=== PATIENT | female | born 1980 | race Two or more races ===

== ENCOUNTER 2020-08-07 14:56 | Outpatient (AMBR) | payer OTHER, MEDICAID, SELFPAY ==
--- NOTE | 2020-08-07 15:13 | PTNOTE_ITS ---
PT OP Initial Eval Patient Information Visit Reasons: low back pain Medical Diagnosis: M54.52 Start of Care: 08/07/20 Date of Onset: 4 months ago Initial Assessment Subjective Pt is 40 yr old female who reports LBP that radiates down the back of the L LE. Increased pain with prolonged walking, standing up straight and the LE's go numb/painful. 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 PMH: HTN Imaging: with provider, Xray report in chart Pt goal: less LBP Objective Trunk ArOM: B SB 18 with pain L>R Extension: 30% with pain around L2-3 centrally Flexion: 4 from floor B rotation: 60% R SLR ROM: 42 deg. L SLR: 50 deg with posterior knee neural tension, LBP LE strength: B hamstrings: 4-/5 Quads 4-/5 Hip abd/add 4-/5 TTP: moderate L paraspinals L2-3 and diffusely L3-S1 L SLR: positive Assessment Pt presents with trunk extension sensitivity and overlying myofascial pain around L2-5. She has lumbar extensor atrophy and pain with prolonged standing. Pt has good pelvic kinematics and is able to control pelvic tilt. These findings are consistent with mechanical lumbar facet pain and possible disk pain with L LE radiation. Pt requires skilled therapy in order to decrease pain and improve standing tolerance and has fair/good rehab potential. Short Term and Residential Goals 1. Ind with HEP 2. Improved standing tolerance to 30 minutes with <=4/10 LBP 3. Pt will improve ambulatory distance to not limited by pain 4. Pt will demonstrate posterior pelvic tilting in standing Treatment Plan 1. Manual therapy 2. Therex 3. Modalities as indicated, moist heat, ice, estim Frequency and Duration 2x a week for 6 weeks Certification Dates: 08/07/20 to 11/06/20 Office Procedures PT Procedures PT Date of Service: 08/07/20 OP PT Eval Mod Complex 30 minutes: Yes
== END 2020-08-10 23:59 | disposition home or self-care (01) ==
PROVIDERS: PCP Physician Assistant Medical; Referring Provider Physician Assistant Medical; Visit Provider Physician Assistant Medical
DX: M54.42 Lumbago with sciatica, left side (principal); I10 Essential (primary) hypertension
CPT/HCPCS: 97162

== ENCOUNTER 2020-09-06 14:29 | Outpatient (AMBR) | payer OTHER, MEDICAID, SELFPAY ==
--- NOTE | 2020-08-13 19:17 | PT.ODAYNRPT ---
PT Outpatient Daily Note Date of Service: 08/13/20 OP Daily Note Visit Reasons: low back pain Outpatient Physical Therapy Treatment Date: 08/13/20 Subjective: Less LBP with posterior pelvic tilting Objective: SEe F/S for therex Mech traction L/S x10' at 40 lbs Assessment: Good response to pelvic tilting in supine and standing to relieve LBP consistent with facet pain. Plan: Continue per POC Length of Time (minutes) of Treatment: 30 Minutes Office Procedures PT Procedures PT Date of Service: 08/13/20 Therapeutic Exercise 15 minutes: Yes Manual Clinical Data Manager 15 minutes: Yes
--- NOTE | 2020-08-15 16:09 | PTNOTE_ITS ---
PT Outpatient Daily Note Date of Service: 08/15/20 OP Daily Note Visit Reasons: low back pain Outpatient Physical Therapy Treatment Date: 08/15/20 Subjective: Less LBP with posterior pelvic tilting in standing but it hurts when she sits. She stands for prolonged periods at work and it hurts after sitting down. Objective: SEe F/S for therex MT: STM L/S x10' with Graston Assessment: Good response to pelvic tilting in supine and standing to relieve LBP consistent with facet pain and X-ray results of anterolisthesis L4 on L5. Plan: Continue per POC Length of Time (minutes) of Treatment: 30 Minutes Office Procedures PT Procedures PT Date of Service: 08/13/20 Therapeutic Exercise 15 minutes: Yes Manual Nurse Substance Abuse 15 minutes: Yes PT Procedures PT Date of Service: 08/15/20 Therapeutic Exercise 15 minutes: Yes Manual Nurse Substance Abuse 15 minutes: Yes
--- NOTE | 2020-08-21 18:24 | PTNOTE_ITS ---
PT Outpatient Daily Note Date of Service: 08/21/20 OP Daily Note Visit Reasons: low back pain Outpatient Physical Therapy Treatment Date: 08/21/20 Subjective: Less LBP with posterior pelvic tilting in standing but it hurts when she sits. She stands for prolonged periods at work and it hurts after sitting down. Objective: SEe F/S for therex MT: STM L/S x10' with Graston Assessment: Good response to pelvic tilting in supine and standing to relieve LBP consistent with facet pain and X-ray results of anterolisthesis L4 on L5. Plan: Continue per POC Length of Time (minutes) of Treatment: 30 Minutes Office Procedures PT Procedures PT Date of Service: 08/13/20 Therapeutic Exercise 15 minutes: Yes Manual Improvement Rn 15 minutes: Yes PT Procedures PT Date of Service: 08/21/20 Therapeutic Exercise 15 minutes: Yes Manual Improvement Rn 15 minutes: Yes PT Procedures PT Date of Service: 08/15/20 Therapeutic Exercise 15 minutes: Yes Manual Improvement Rn 15 minutes: Yes
--- NOTE | 2020-08-23 18:33 | PT.ODAYNRPT ---
PT Outpatient Daily Note Date of Service: 08/23/20 OP Daily Note Visit Reasons: low back pain Outpatient Physical Therapy Treatment Date: 08/23/20 Subjective: Less LBP with posterior pelvic tilting in standing but it hurts when she sits. She stands for prolonged periods at work and it hurts after sitting down. Objective: SEe F/S for therex MT: STM L/S x10' with Graston Mechanical traction L/S x7' at 40 lbs Assessment: Good response to pelvic tilting in supine and standing to relieve LBP consistent with facet pain and X-ray results of anterolisthesis L4 on L5. Plan: Continue per POC Length of Time (minutes) of Treatment: 30 Minutes Office Procedures PT Procedures PT Date of Service: 08/13/20 Therapeutic Exercise 15 minutes: Yes Manual Digital Field Service Technician 15 minutes: Yes PT Procedures PT Date of Service: 08/21/20 Therapeutic Exercise 15 minutes: Yes Manual Digital Field Service Technician 15 minutes: Yes PT Procedures PT Date of Service: 08/15/20 Therapeutic Exercise 15 minutes: Yes Manual Digital Field Service Technician 15 minutes: Yes PT Procedures PT Date of Service: 08/23/20 Therapeutic Exercise 15 minutes: Yes Manual Digital Field Service Technician 15 minutes: Yes
--- NOTE | 2020-08-27 20:44 | PT.ODAYNRPT ---
PT Outpatient Daily Note Date of Service: 08/27/20 OP Daily Note Visit Reasons: low back pain Outpatient Physical Therapy Treatment Date: 08/27/20 Subjective: Less LBP with posterior pelvic tilting in standing but it hurts when she sits. She stands for prolonged periods at work and it hurts after sitting down. Objective: SEe F/S for therex Mechanical traction L/S x7' at 40 lbs Assessment: Good response to pelvic tilting in supine and standing to relieve LBP consistent with facet pain and X-ray results of anterolisthesis L4 on L5. Plan: Continue per POC Length of Time (minutes) of Treatment: 30 Minutes Office Procedures PT Procedures PT Date of Service: 08/13/20 Therapeutic Exercise 15 minutes: Yes Manual Sugar Cane Planter Machine Operator 15 minutes: Yes PT Procedures PT Date of Service: 08/21/20 Therapeutic Exercise 15 minutes: Yes Manual Sugar Cane Planter Machine Operator 15 minutes: Yes PT Procedures PT Date of Service: 08/27/20 Therapeutic Exercise 30 minutes: Yes PT Procedures PT Date of Service: 08/15/20 Therapeutic Exercise 15 minutes: Yes Manual Sugar Cane Planter Machine Operator 15 minutes: Yes PT Procedures PT Date of Service: 08/23/20 Therapeutic Exercise 15 minutes: Yes Manual Sugar Cane Planter Machine Operator 15 minutes: Yes
--- NOTE | 2020-08-29 19:04 | PT.ODAYNRPT ---
PT Outpatient Daily Note Date of Service: 08/29/20 OP Daily Note Visit Reasons: low back pain Outpatient Physical Therapy Treatment Date: 08/29/20 Subjective: Less LBP with posterior pelvic tilting in standing but it hurts when she sits. She stands for prolonged periods at work and it hurts after sitting down. Objective: SEe F/S for therex Mechanical traction L/S x7' at 40 lbs MT: STM L/S x10 with graston Assessment: Good response to pelvic tilting in supine and standing to relieve LBP consistent with facet pain and X-ray results of anterolisthesis L4 on L5. Plan: Continue per POC Length of Time (minutes) of Treatment: 30 Minutes Office Procedures PT Procedures PT Date of Service: 08/13/20 Therapeutic Exercise 15 minutes: Yes Manual Web Content Producer 15 minutes: Yes PT Procedures PT Date of Service: 08/21/20 Therapeutic Exercise 15 minutes: Yes Manual Web Content Producer 15 minutes: Yes PT Procedures PT Date of Service: 08/27/20 Therapeutic Exercise 30 minutes: Yes PT Procedures PT Date of Service: 08/15/20 Therapeutic Exercise 15 minutes: Yes Manual Web Content Producer 15 minutes: Yes PT Procedures PT Date of Service: 08/23/20 Therapeutic Exercise 15 minutes: Yes Manual Web Content Producer 15 minutes: Yes PT Procedures PT Date of Service: 08/29/20 Therapeutic Exercise 15 minutes: Yes Manual Web Content Producer 15 minutes: Yes
--- NOTE | 2020-09-04 18:33 | PTNOTE_ITS ---
PT Outpatient Daily Note Date of Service: 09/04/20 OP Daily Note Visit Reasons: low back pain Outpatient Physical Therapy Treatment Date: 09/04/20 Subjective: Less LBP because she is not lifting heavy at work this week Objective: SEe F/S for therex MT: CLINT L/S x10 with graston Assessment: Good response to pelvic tilting in supine and standing to relieve LBP consistent with facet pain and X-ray results of anterolisthesis L4 on L5. Plan: Continue per POC Length of Time (minutes) of Treatment: 30 Minutes Office Procedures PT Procedures PT Date of Service: 08/13/20 Therapeutic Exercise 15 minutes: Yes Manual Certified Pharmacist Assistant 15 minutes: Yes PT Procedures PT Date of Service: 08/21/20 Therapeutic Exercise 15 minutes: Yes Manual Certified Pharmacist Assistant 15 minutes: Yes PT Procedures PT Date of Service: 08/27/20 Therapeutic Exercise 30 minutes: Yes PT Procedures PT Date of Service: 08/15/20 Therapeutic Exercise 15 minutes: Yes Manual Certified Pharmacist Assistant 15 minutes: Yes PT Procedures PT Date of Service: 08/23/20 Therapeutic Exercise 15 minutes: Yes Manual Certified Pharmacist Assistant 15 minutes: Yes PT Procedures PT Date of Service: 08/29/20 Therapeutic Exercise 15 minutes: Yes Manual Certified Pharmacist Assistant 15 minutes: Yes PT Procedures PT Date of Service: 09/04/20 Therapeutic Exercise 15 minutes: Yes Manual Certified Pharmacist Assistant 15 minutes: Yes
--- NOTE | 2020-09-06 18:50 | PTNOTE_ITS ---
PT OP Progress/Discharge Note Date of Service: 09/06/20 Progress Note/DC Note Progress Note/Discharge Note: DC Note Patient Information Visit Reasons: low back pain Service Continue Service or Discharge: Discharge Discharge Date: 09/06/20 Status Subjective: Not much change in LBP since starting therapy. It hurts most days starting around 11 a.m. for the rest of the day and the radiating pain down the LE's has increased lately. Objective: Trunk AROM: Extension: 30% with LBP Flexion: 4 from floor LE strength: Quads: 4-/5 HS: 4-/5 Assessment: Pt has attended 8 Rx visits and made slow progress with goals. She can sometimes stand for 30 minutes without LBP but depends on the day. At first she had good response to pelvic tilting in supine and standing to relieve LBP consistent with facet pain and X-ray results of anterolisthesis L4 on L5. Then recently she seems to have had more LBP. PT recommends further diagnostic imaging since the LE radicular ssx are increasing. Plan: Pt is discharged to provider for further workup. Office Procedures PT Procedures PT Date of Service: 08/13/20 Therapeutic Exercise 15 minutes: Yes Manual Senior Communications Specialist 15 minutes: Yes PT Procedures PT Date of Service: 08/21/20 Therapeutic Exercise 15 minutes: Yes Manual Senior Communications Specialist 15 minutes: Yes PT Procedures PT Date of Service: 08/27/20 Therapeutic Exercise 30 minutes: Yes PT Procedures PT Date of Service: 08/15/20 Therapeutic Exercise 15 minutes: Yes Manual Senior Communications Specialist 15 minutes: Yes PT Procedures PT Date of Service: 08/23/20 Therapeutic Exercise 15 minutes: Yes Manual Senior Communications Specialist 15 minutes: Yes PT Procedures PT Date of Service: 08/29/20 Therapeutic Exercise 15 minutes: Yes Manual Senior Communications Specialist 15 minutes: Yes PT Procedures PT Date of Service: 09/04/20 Therapeutic Exercise 15 minutes: Yes Manual Senior Communications Specialist 15 minutes: Yes PT Procedures PT Date of Service: 09/06/20 Therapeutic Exercise 30 minutes: Yes
== END 2020-09-10 23:59 | disposition home or self-care (01) ==
PROVIDERS: PCP Physician Assistant Medical; Referring Provider Physician Assistant Medical; Visit Provider Physician Assistant Medical
DX: M54.42 Lumbago with sciatica, left side (principal); I10 Essential (primary) hypertension
CPT/HCPCS: 97110; 97140

== ENCOUNTER → 2024-05-19 | Outpatient (CLI) | payer OTHER, SELFPAY ==
--- NOTE | 2024-05-19 09:30 | XR_ITS ---
Examination: Scoliosis survey 2, views. Technique: AP standing thoracic, AP standing lumbar spine, two views. Exam date and time: May 19, 2024 1317 hours INDICATIONS: Lower lumbar pain 7 months. FINDINGS: Midthoracic dextroscoliosis 4 degrees Thoracolumbar levoscoliosis 4 degrees Transpedicular lumbar fusion L4-S1 IMPRESSION: Minimal scoliosis
--- NOTE | 2024-05-19 13:20 | XR_ITS ---
Examination: Lumbar spine, 5 views Technique: Lumbar spine AP, lateral, coned lateral lower lumbar spine, bilateral obliques 5 views Exam date and time: May 19, 2024 at 1317 hours INDICATIONS: Lumbar fusion 7 months ago. FINDINGS: Transpedicular lumbar fusion L4-S1 with anatomic alignment No significant arthritic change Intact pedicles No cortical bone destruction IMPRESSION: Transpedicular lumbar fusion L4-S1 with anatomic alignment
== END | disposition home or self-care (01) ==
LOC: SDIM 09:04
PROVIDERS: PCP Family Medicine; Referring Provider Orthopaedic Surgery Orthopaedic Surgery of the Spine; Visit Provider Orthopaedic Surgery Orthopaedic Surgery of the Spine
DX: M41.85 Other forms of scoliosis, thoracolumbar region (principal); M43.27 Fusion of spine, lumbosacral region
CPT/HCPCS: 72082; 72110

== ENCOUNTER → 2024-06-21 | Outpatient (CLI) | payer OTHER, SELFPAY ==
[2024-06-21 12:24] LABS: Collection Type, Urine Clean Catch
[2024-06-21 13:27] LABS: Basophils # (Auto) 0.1 Thou/mm3 (0.0-0.2); Basophils % (Auto) 1 % (0-2.5); Eosinophils # (Auto) 0.3 Thou/mm3 (0.0-0.5); Eosinophils % (Auto) 3 % (0-10); Hematocrit 34.7 % (36.0-46.0); Hemoglobin 10.8 g/dL (12.0-16.0); Immature Granulocytes % (Auto) 0 % (0-0); Immature Granulocytes Auto 0.03 Thou/mm3 (0.00-0.00); Lymphocytes # (Auto) 2.1 Thou/mm3 (1.0-4.8); Lymphocytes % (Auto) 25 % (10-50); Mean Corpuscular HGB Conc 31.1 g/dl (31.0-37.0); Mean Corpuscular Volume 83 fL (80-100); Monocytes # (Auto) 0.6 Thou/mm3 (0.0-0.8); Monocytes % (Auto) 8 % (0-12); Neutrophils # (Auto) 5.1 Thou/mm3 (1.8-7.7); Neutrophils % (Auto) 62 % (37-80); Nucleated Red Blood Cell % 0 /100 WBC (0); Platelet Count 451 Thou/mm3 (140-440); RDW Standard Deviation 42.2 fL (36.4-46.3); Red Blood Count 4.16 Miln/mm3 (4.00-5.20); White Blood Count 8.2 Thou/mm3 (3.6-11.0)
[2024-06-21 13:29] LABS: Bilirubin,Urine Negative (Negative); Blood,Urine Negative (Negative); Clarity,Urine Clear (Clear/Hazy); Color,Urine Lt-Yellow (Lt Yel-Yel); Culture Indicated,Urine Not Indicated; Glucose, Urine Negative (Negative); Ketones,Urine Negative (Negative); Leukocyte Esterase,Urine Negative (Negative); Nitrite,Urine Negative (Negative); Protein,Urine Negative (Neg - Trace); RBC,Urine 4 /hpf (0-3); Specific Gravity,Urine 1.008 (1.001-1.035); Squamous Epithelial Cell,Urine 3 /hpf (0-5); Urobilinogen,Urine Negative mg/dL (0.0-1.0); WBC,Urine 2 /hpf (0-5)
[2024-06-21 13:37] LABS: Glucose Estimated Average 117 mg/dL (80-131); Hemoglobin A1C 5.7 % Hgb (4.8-6.0)
[2024-06-21 13:53] LABS: Follicle Stimulating Hormone 7.52 mIU/mL (See Note)
== END | disposition home or self-care (01) ==
PROVIDERS: PCP Family Medicine; Referring Provider Family Medicine; Visit Provider Family Medicine
DX: M41.9 Scoliosis, unspecified (principal)
CPT/HCPCS: 36415; 81001; 83001; 83036; 85025

== ENCOUNTER 2024-08-08 08:55 | Outpatient (AMB) | payer OTHER, SELFPAY ==
[2024-08-08 09:11] VITALS: BP 133/83; PULSE 75; RESP 14; TEMP 35.4; O2SAT 98; BMI 38.1
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
== END 2024-08-08 09:54 | disposition home or self-care (01) ==
LOC: HODSOBC 08:55
PROVIDERS: PCP Family Medicine; Referring Provider Family Medicine; Supervising Provider Obstetrics & Gynecology; Visit Provider Obstetrics & Gynecology
DX: N39.46 Mixed incontinence (principal); N76.0 Acute vaginitis; N92.6 Irregular menstruation, unspecified; I10 Essential (primary) hypertension; Z79.899 Other long term (current) drug therapy
CPT/HCPCS: 99213; 99214; Q0091; G0463

== ENCOUNTER 2024-08-10 08:00 | Outpatient (RCR) | payer OTHER, SELFPAY ==
--- NOTE | 2024-07-26 16:00 | PT.OIERPT ---
PT OP Initial Eval Patient Information Visit Reasons: Back pain Medical Diagnosis: [id number]; M54.15 Treatment Dx #1: Back Pain Treatment Dx #2: L/S Mobility Deficits Start of Care: 07/26/24 Date of Onset: 9 months ago Smoking Status Smoking Status: Never smoker Initial Assessment Subjective: Pt is a 44 y/o female s/p L4-L5 fusion ~ 9 months ago. Pt still has cramping in her legs but back feels much better. Pt has limitation with sitting, standing, lifting, work duties, bending, prolonged walking, and recreational activities. Objective: L/S AROM: all motions are WFL Hip PROM: all motions are WFL except IR Hip MMTs: grossly 3+/5 Musclle Length: tight Hs Special Test (+) IVY's (+) Alex Assessment: Pt demonstrate back pain with mobility deficits s/p lumbar fusion leading to difficulty with ADLs. Pt will benefit from physical therapy to increase ROM, strength, and work on flexibility Short Term and Usp Goals 1) Increase L/S AROM WNL in 6 wks to be able to perform chores 2) Increase core strength WFL in 6 wks to be able to perform recreational activities 3) Increase hip MMTs grossly 4/5 in 6 wks to be able to perform work duties 4) Teach proper lifting dairy equipment mechanic in 6 wks 5) Indep with HEP Treatment Plan 1) Manual Therapy 2) Therapeutic Activities 3) Therapeutic Exercises 4) Modalities (ice, heat) Frequency and Duration: 2 x wk for 6 wks Certification Dates: 07/26/24 to 10/25/24 Procedure Charges OP PT Eval Mod Complex 30 minutes: Yes
--- NOTE | 2024-08-03 08:33 | PT.ODAYNRPT ---
PT Outpatient Daily Note OP Daily Note Outpatient Physical Therapy Treatment Date: 08/03/24 Visit Reasons: Back pain Subjective: Pt reports back is sore today, bend down to pick something up at work and heard a pop not back is sore. Objective: Please see flow sheet for ther ex list. Assessment: Light mobility exercises to spine and isometric core strengthening completed with good technique. Plan: Continue with poC. Length of Time (minutes) of Treatment: 30 Minutes Procedure Charges Therapeutic Exercise 30 minutes: Yes
--- NOTE | 2024-08-05 10:07 | PT.ODAYNRPT ---
PT Outpatient Daily Note OP Daily Note Outpatient Physical Therapy Treatment Date: 08/05/24 Visit Reasons: Back pain Subjective: Pt's back is about the same. No change in pain and continues to have cramping in the legs. Objective: Please see flow chart for list of ther ex performed Assessment: tolerate exercises with minimal pain and added heat with supine exercise to allow tolerance of position while performing supine exercises Plan: Continue with PT Length of Time (minutes) of Treatment: 30 Minutes Procedure Charges Therapeutic Exercise 30 minutes: Yes
--- NOTE | 2024-08-08 13:13 | PT.ODAYNRPT ---
PT Outpatient Daily Note OP Daily Note Outpatient Physical Therapy Treatment Date: 08/08/24 Visit Reasons: Back pain Subjective: Pt's back is stiff and has been moving things around the house. Pt mentioned she called in work today. Objective: Please see flow chart for list of ther ex performed Assessment: tolerate exercises with minimal pain Plan: Continue with PT Length of Time (minutes) of Treatment: 30 Minutes Procedure Charges Therapeutic Exercise 30 minutes: Yes
--- NOTE | 2024-08-10 08:17 | PT.ODAYNRPT ---
PT Outpatient Daily Note OP Daily Note Outpatient Physical Therapy Treatment Date: 08/10/24 Visit Reasons: Back pain Subjective: Pt reports back is doing good today. 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 Objective: Please see flow sheet for ther ex list. Assessment: Added lateral stepping exercise, pt demonstrates good trunk control during exercise. Plan: Continue with POC. Length of Time (minutes) of Treatment: 30 Minutes Procedure Charges Therapeutic Exercise 30 minutes: Yes
== END 2024-08-10 23:59 | disposition home or self-care (01) ==
LOC: CPTX 08:00
PROVIDERS: PCP Orthopaedic Surgery Orthopaedic Surgery of the Spine; Referring Provider Orthopaedic Surgery Orthopaedic Surgery of the Spine; Visit Provider Orthopaedic Surgery Orthopaedic Surgery of the Spine
DX: M54.15 Radiculopathy, thoracolumbar region (principal); R26.2 Difficulty in walking, not elsewhere classified; Z98.1 Arthrodesis status
CPT/HCPCS: 97110; 97162

== ENCOUNTER 2024-09-06 13:00 | Outpatient (RCR) | payer OTHER, SELFPAY ==
--- NOTE | 2024-08-16 16:06 | PTNOTE_ITS ---
PT Outpatient Daily Note OP Daily Note Outpatient Physical Therapy Treatment Date: 08/16/24 Visit Reasons: Back pain Subjective: Pt's back is better. Pt is having a better day today. No new concerns to report. Objective: Please see flow chart for list of ther ex performed Assessment: tolerate exercises with minimal pain. taught patient how to hip hinge cues to co rrect form. 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
--- NOTE | 2024-08-23 15:47 | PT.ODAYNRPT ---
PT Outpatient Daily Note OP Daily Note Outpatient Physical Therapy Treatment Date: 08/23/24 Visit Reasons: Back pain Subjective: Pt's back is sore and aches. Pt mentioned due to the low sink at work she has to bend her back. Objective: Please see flow chart for list of ther ex performed Assessment: tolerate exercises with minimal pain. hip fatigue post side step and monster walk exercises Plan: Continue with PT Length of Time (minutes) of Treatment: 30 Minutes Procedure Charges Therapeutic Exercise 30 minutes: Yes
--- NOTE | 2024-08-25 15:44 | PT.ODAYNRPT ---
PT Outpatient Daily Note OP Daily Note Outpatient Physical Therapy Treatment Date: 08/25/24 Visit Reasons: Back pain Subjective: Pt reports back is doing ok, stiffness is worse when getting up and out of bed. Objective: Please see flow sheet for ther ex list. Assessment: Added bridge exercise, pt able to complete with good technique post verbal cues. Plan: Continue with pOC. Length of Time (minutes) of Treatment: 30 Minutes Procedure Charges Therapeutic Exercise 30 minutes: Yes
--- NOTE | 2024-09-06 14:25 | PT.ODAYNRPT ---
PT Outpatient Daily Note OP Daily Note Outpatient Physical Therapy Treatment Date: 09/06/24 Visit Reasons: Back pain Subjective: Pt c/o stiffness in l/s. Objective: Please see flow sheet for ther ex list. Assessment: Pt demonstrates decrease height during bridge exercise due to c/o stiffness and fatigue. Plan: Continue with pOC. Length of Time (minutes) of Treatment: 30 Minutes Procedure Charges Therapeutic Exercise 30 minutes: Yes
== END 2024-09-10 23:59 | disposition home or self-care (01) ==
LOC: CPTX 13:00
PROVIDERS: PCP Orthopaedic Surgery Orthopaedic Surgery of the Spine; Referring Provider Orthopaedic Surgery Orthopaedic Surgery of the Spine; Visit Provider Orthopaedic Surgery Orthopaedic Surgery of the Spine
DX: M54.15 Radiculopathy, thoracolumbar region (principal); R26.2 Difficulty in walking, not elsewhere classified; Z98.1 Arthrodesis status
CPT/HCPCS: 97110

== ENCOUNTER 2024-09-08 14:04 | Outpatient (AMB) | payer OTHER, SELFPAY ==
[2024-09-08 14:19] VITALS: BP 131/83; PULSE 90; RESP 18; TEMP 36.2; O2SAT 98; BMI 36.7
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
== END 2024-09-08 14:44 | disposition home or self-care (01) ==
LOC: HODSOBC 14:04
PROVIDERS: PCP Obstetrics & Gynecology; Referring Provider Obstetrics & Gynecology; Supervising Provider Obstetrics & Gynecology; Visit Provider Obstetrics & Gynecology
DX: N76.0 Acute vaginitis (principal); R32 Unspecified urinary incontinence; E66.01 Morbid (severe) obesity due to excess calories; Z68.36 Body mass index [BMI] 36.0-36.9, adult; N95.1 Menopausal and female climacteric states; Z98.1 Arthrodesis status
CPT/HCPCS: 99213; G0463

== ENCOUNTER 2024-09-28 13:00 | Outpatient (RCR) | payer OTHER, SELFPAY ==
--- NOTE | 2024-09-12 14:11 | PT.ODAYNRPT ---
PT Outpatient Daily Note OP Daily Note Outpatient Physical Therapy Treatment Date: 09/12/24 Visit Reasons: BACK PAIN Subjective: Pt reports back is feeling good today. Objective: Please see flow sheet for ther ex list. Assessment: Added hip hinge exercise, pt demonstrates good technique and proper movement sequencing. Plan: Continue with pOC. Length of Time (minutes) of Treatment: 30 Minutes Procedure Charges Therapeutic Exercise 30 minutes: Yes
--- NOTE | 2024-09-14 14:06 | PT.ODAYNRPT ---
PT Outpatient Daily Note OP Daily Note Outpatient Physical Therapy Treatment Date: 09/14/24 Visit Reasons: BACK PAIN Subjective: Pt reports back is doing better, no pain to report today. Objective: Please see flow sheet for ther ex list. Assessment: Added intervention for core strengthening completed with muscle fatigue but no pain to report. Plan: Continue with pOC. Length of Time (minutes) of Treatment: 30 Minutes Procedure Charges Therapeutic Exercise 30 minutes: Yes
--- NOTE | 2024-09-21 13:35 | PT.ODAYNRPT ---
PT Outpatient Daily Note OP Daily Note Outpatient Physical Therapy Treatment Date: 09/21/24 Visit Reasons: BACK PAIN Subjective: Pt reports back is doing better. Objective: Please see flow sheet for ther ex list. Assessment: Progressing core strengthening interventions, pt completed with muscle fatigue but no pain to report. Plan: Progress functional strength and core strength. Length of Time (minutes) of Treatment: 30 Minutes Procedure Charges Therapeutic Exercise 30 minutes: Yes
--- NOTE | 2024-09-28 16:00 | PT.ODAYNRPT ---
PT Outpatient Daily Note OP Daily Note Outpatient Physical Therapy Treatment Date: 09/28/24 Visit Reasons: BACK PAIN Subjective: Pt reports back stiffness today. Objective: Please see flow sheet for ther ex list. Assessment: Pt moving slower today, c/o back feeling slower today. Plan: Continue with POC. Assess for note. Length of Time (minutes) of Treatment: 30 Minutes Procedure Charges Therapeutic Exercise 30 minutes: Yes
== END 2024-10-10 23:59 | disposition home or self-care (01) ==
LOC: CPTX 13:00
PROVIDERS: PCP Orthopaedic Surgery Orthopaedic Surgery of the Spine; Referring Provider Orthopaedic Surgery Orthopaedic Surgery of the Spine; Visit Provider Orthopaedic Surgery Orthopaedic Surgery of the Spine
DX: M54.15 Radiculopathy, thoracolumbar region (principal); Z98.1 Arthrodesis status
CPT/HCPCS: 97110

== ENCOUNTER 2024-11-05 15:47 | Emergency (ER) | payer OTHER, SELFPAY ==
[2024-11-05 15:47] VITALS: BMI 38.7
[2024-11-05 16:06] VITALS: BP 144/93; PULSE 102; RESP 20; TEMP 37.6; O2SAT 100
--- NOTE | 2024-11-05 16:12 | XR_ITS ---
Examination: Abdomen sonogram, Limited Date and time of exam: November 05, 2024, 1616 hours INDICATIONS: Right upper abdominal pain beginning 2 days ago, history cholecystectomy Technique: Real-time govea scale transabdominal sonographic images of the upper abdomen obtained. Findings: Absent gallbladder Hypoechoic area in the gallbladder fossa 3.2 x 1.1 x 1.6 cm described by the technologist Common bile duct 0.5 cm Pancreatic head 3.0 cm Liver 15.3 cm fatty infiltration free fluid adjacent to the liver Normal hepatopedal portal venous Patent IVC Impression: Consider CT scan abdomen and pelvis post intravenous contrast follow-up to exclude fluid collection in the gallbladder fossa Normal common bile duct Liver normal size with fatty infiltration Mild ascites
--- NOTE | 2024-11-05 16:28 | XR_ITS ---
Examination: CT abdomen with intravenous contrast CT pelvis with intravenous contrast 2-D coronal reconstructions 2-D sagittal reconstructions Date and time of exam:November 05, 2024, 1913 hours INDICATIONS: Abdominal pain beginning 2 days ago. CTDI: vol (mGy) 11.8. DLP: (mGycm) 740. Technique: Multiple axial sections of the abdomen and pelvis have been obtained. 64 slice high-resolution scanner used. 3 mm axial sections have been obtained, post intravenous injection 60 cc [id number]-370. 2-D sagittal, coronal reconstructions obtained. Low dose protocols were performed. One or more of the following dose reduction techniques were used; automated exposure control, adjustment of the mA and/or KV according to patient size, use of iterative reconstruction technique. 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
--- NOTE | 2024-11-05 16:29 | EDNOTE_ITS ---
ED Abdominal Pain RME/HPI General Chief Complaint: Abdominal Pain Stated complaint: RIGHT ABD PAIN SINCE YESTERDAY, ?SYNCOPAL EPISODE Time seen by provider: 11/05/24 15:53 Arrival date/time: 11/05/24 15:47 RME / HPI RME / HPI narrative: 44-year-old female patient with significant history of hypertension status post cholecystectomy, 3 years ago, came in for evaluation regarding right-sided abdominal pain. Patient's been having on and off right-sided abdominal pain, from top to bottom, severity moderate, getting worse yesterday. Patient also near syncope earlier today. No fever no vomiting no diarrhea no other complaints noted. Related Data Home Medications ?Medication ?Instructions ?Recorded ?Confirmed lisinopril 10 mg tablet 10 mg PO HS 10/18/19 5 Previous Rx's ?Medication ?Instructions ?Recorded hydrocodone 5 mg-acetaminophen 325 1 tab PO Q6H PRN pa in (scale score 12/10/21 mg tablet 7-10) #20 tabs gabapentin 300 mg capsule 300 mg PO Q8H #30 caps 07/02 fluconazole 150 mg tablet 150 mg PO Q3D 2 doses #2 tab s 08/08/24 oxybutynin chloride 5 mg 5 mg PO QDAY 30 days #30 tab s 08/08/24 tablet,extended release 24 hr amoxicillin 875 mg-potassium 1 tab PO BID #14 tabs clavulanate 125 mg tablet Allergies Allergy/AdvReac Type Severity Reaction Status Date / Time No Known Allergies Allergy Verified 11/05/24 15:49 Review of Systems Review of Systems Narrative Review of Systems: Review of system reviewed and within normal limits except mentioned in HPI ED Exam Narrative Physical exam: VITAL SIGNS: Reviewed. GENERAL APPEARANCE: Alert and interactive, follows commands, no acute distress, HEAD AND FACE: Non-traumatic. ENT: PERRL, pink conjunctivitis, eyelid no trauma, Mucous membrane moist. NECK: Supple, nontender, no nuchal rigidity. CHEST: No tenderness, no crepitus, no paradoxical movement, no retractions. LUNGS: Clear, well ventilated, symmetric, no rales, no wheezing, no ronchi, no stridor, good breath sounds bilaterally. HEART: Regular rate, regular rhythm, no murmur, no gallops. ABDOMEN: Soft, positive bowel sounds, nondistended, no guarding, right sided abdominal tenderness, no rebound, no masses, RECTAL: Deferred. GENITAL: Deferred. NEUROLOGICAL: Gross motor function intact sensory function intact, Appropriate for age. MUSCULOSKELETAL: low back nontender, full range of motion. EXTREMITIES: Nontender, full range of motion. SKIN: Color pink, dry, no rash, no lacerations, no abrasions, no contusions. LYMPHATICS: Deferred. Course Quality Measures none Orders Category Date Time Status Bedside COVID-19 Antigen Test NOW Care 11/05/24 18:39 Active Bedside Influenza A&B Antigen Test NOW Care 11/05/24 18:[address] Screening NOW Care 11/05/24 16:28 Active Consult to Obstetrics Stat Cons 11/05/24 20:[address] abdomen pelvis w con Stat Exams 11/05/24 16:28 Completed US gall bladder Stat Exams 11/05/24 16:12 Completed US pelvic complete Stat Exams 11/05/24 19:57 Completed CBC Stat Lab 11/05/24 16:31 Completed Comprehensive Metabolic Panel Stat Lab 11/05/24 16:31 Completed Lipase Stat Lab 11/05/24 16:31 Completed Prothrombin Time with INR Stat Lab 11/05/24 16:31 Completed UA, C/S IF [Urinalysis, C/S if Indicated] Stat Lab 11/05/24 16:45 Completed Acetaminophen Tab [Tylenol ES Tab] Med 11/05/24 18:38 Discontinued 1,000 mg PO X1 ONE Amoxicillin/Pot Clav 875 [Augmentin 875] Med 11/05/24 23:02 Once 1 tab PO X1 ONE Ketorolac Inj [Toradol Inj] Med 11/05/24 16:27 Discontinued 30 mg IM X1 ONE Ketorolac Inj [Toradol Inj] Med 11/05/24 16:28 Discontinued 30 mg IVP X1 ONE Sodium Chloride 0.9% 1000 ml [Ns] 1,000 ml Med 11/05/24 18:39 Discontinued IV 999 mls/hr Vital Signs Vital signs: Vital Signs Temperature 99.6 F 11/05/24 16:06 Pulse Rate 102 H 11/05/24 16:06 Respiratory Rate 20 11/05/24 16:06 Blood Pressure 144/93 H 11/05/24 16:06 Pulse Oximetry (%) 100 11/05/24 16:06 Oxygen Delivery Method Room Air 11/05/24 16:06 Abdominal Pain [facility] Narrative [facility] Narrative:: 44-year-old female patient came in for evaluation regarding right sided abdominal pain. Patient's been having on and off right-sided abdominal pain, from top to bottom, severity moderate, getting worse yesterday. Patient also near syncope earlier today. No fever no vomiting no diarrhea no other com plaints noted. 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 Patient is okay to be discharged home, she will follow-up with Dr. De Guzman this Thursday. Incidentally there is pneumonia on CT scan, so I prescribed this patient Augmentin. Patient data External records reviewed:: None Clinical information provided by:: patient and family Social determinants that could affect healthcare access:: none Patient has the following chronic illnesses:: None How is presenting disease/condition affected by chronic disease/condition?: no chronic disease Evaluation data The following diagnostics were reviewed and interpreted by me:: lab results and radiology exam(s) Lab and/or radiology exams considered but not ordered:: None Interpretation Summary: See results [facility] Medications / Prescriptions Medications or Prescriptions considered but not ordered:: None Medication administrations:: Medication Administration History Discontinued Medications Acetaminophen (Acetaminophen 500 Mg Tablet) 1,000 mg PO X1 ONE Stop: 11/05/24 18:39 Last Admin: 11/05/24 18:48 Dose: 1,000 mg Documented By: JOANNE Sodium Chloride (Ns) 1,000 mls @ 999 mls/hr IV .Q1H1M ONE Stop: 11/05/24 19:39 Last Infusion: 11/05/24 20:48 Dose: Infused Documented By: Admin: 11/05/24 18:49 Dose: 999 mls/hr Documented By: JOANNE Ketorolac Tromethamine (Ketorolac Inj 60 Mg/2 Ml Vial) 30 mg IM X1 ONE Stop: 11/05/24 16:28 Last Admin: 11/05/24 18:30 Dose: Not Given Documented By: GM Non-Admin Reason: Discontinued Ketorolac Tromethamine (Ketorolac Inj 30 Mg/Ml Vial) 30 mg IVP X1 ONE Stop: 11/05/24 16:29 Last Admin: 11/05/24 18:28 Dose: 30 mg Documented By: GM Toradol, IV fluids, Tylenol Consultations Consultation(s) initiated? (list below): Yes Consultation #1 (Physician, Specialty, Details): Dr Bedolla, REPAIR WELDER on-call thank you DrKatie Diagnosis Differential diagnosis abdominal pain: abdominal pain and other (Pneumonia, pelvic mass,) Most likely diagnosis given after review of the tests above:: Pelvic mass, pneumonia Admission Indicated Admission indicated?: not indicated Admission Request Was there a request for admission?: No Disposition Plan Disposition Plan: Discharge Discharge Attestation Discharge Attestation: The patient and all family members were given an opportunity to ask questions and understood the discharge instructions. Discharge instructions specifically effects, indications for sooner follow up or return to the emergency department, and the expected course of current diagnosis. Patient condition: Stable Discharge Plan Plan Patient Disposition: HOME (Self Care) Discharge Disposition comment: Stable Prescriptions/Referrals Prescriptions/Med Rec: New amoxicillin-pot clavulanate 875-125 mg tablet 1 tab PO BID Qty: 14 0RF No Action fluconazole 150 mg tablet 150 mg PO Q3D Qty: 2 0RF oxybutynin chloride 5 mg tablet extended release 24hr 5 mg PO QDAY 30 Days Qty: 30 1RF lisinopril 10 mg Tablet 10 mg PO HS hydrocodone-acetaminophen 5-325 mg tablet 1 tab PO Q6H MDD 4 PRN (Reason: pain (scale score 7-10)) Qty: 20 0RF gabapentin 300 mg capsule 300 mg PO Q8H Qty: 30 0RF Referrals: Win Martínez MD [Primary Care Provider] - In 1 week Problem List Clinical Impression: Pelvic mass, PNA (pneumonia) Patient/Caregiver Discharge Instructions Discharge Activity: activity as tolerated Education Materials: What Is Pneumonia? Additional Instructions: Thank you for the opportunity for serving you today. You are stable for discharged . You are advised to: Follow-up with Dr De Guzman this Thursday Return to ED for worsening of symptoms Increase oral fluids Take medication as prescribed Print Language: Maldivian Stand Alone Forms: Morena Award Info., Patient Portal Info Letter PA/SPENT GRAIN DRYER Supervising Physician AARON/ILSA Supervising Physician: MD Herbie
[2024-11-05 16:52] LABS: Basophils # (Auto) 0.1 Thou/mm3 (0.0-0.2); Basophils % (Auto) 1 % (0-2.5); Eosinophils # (Auto) 0.1 Thou/mm3 (0.0-0.5); Eosinophils % (Auto) 1 % (0-10); Hematocrit 29.6 % (36.0-46.0); Hemoglobin 9.4 g/dL (12.0-16.0); Immature Granulocytes Auto 0.03 Thou/mm3 (0.00-0.00); Lymphocytes # (Auto) 1.3 Thou/mm3 (1.0-4.8); Lymphocytes % (Auto) 12 % (10-50); Mean Corpuscular HGB Conc 31.8 g/dl (31.0-37.0); Mean Corpuscular Hemoglobin 25.4 pg (25.0-35.0); Mean Corpuscular Volume 80 fL (80-100); Monocytes # (Auto) 0.9 Thou/mm3 (0.0-0.8); Monocytes % (Auto) 9 % (0-12); Neutrophils # (Auto) 8.3 Thou/mm3 (1.8-7.7); Neutrophils % (Auto) 78 % (37-80); Nucleated Red Blood Cell # 0.00 Thou/mm3 (0.00-0.00); Nucleated Red Blood Cell % 0 /100 WBC (0); Platelet Count 417 Thou/mm3 (140-440); RDW Standard Deviation 40.7 fL (36.4-46.3); Red Blood Count 3.70 Miln/mm3 (4.00-5.20); White Blood Count 10.7 Thou/mm3 (3.6-11.0)
[2024-11-05 17:00] LABS: INR 1.1 (0.9-1.3); Prothrombin Time 12.0 Seconds (9.0-12.2)
[2024-11-05 17:06] LABS: Alanine Aminotransferase 33 U/L (10-49); Albumin, Serum 4.1 gm/dL (3.5-5.0); Albumin/Globulin Ratio 1.2 (1.2-2.2); Alkaline Phosphatase 117 U/L (46-116); Anion Gap 8 (7-16); Aspartate Amino Transferase 59 U/L (0-34); BUN/Creatinine Ratio 10 Ratio (12-20); Bilirubin,Total 0.9 mg/dL (0.3-1.2); Blood Urea Nitrogen 8 mg/dL (9-23); Calcium 8.8 mg/dL (8.3-10.6); Calcium (Corrected) 8.8 mg/dL (8.5-10.1); Carbon Dioxide 25.9 mMol/L (20.0-31.0); Chloride 103 mMol/L (98-107); Creatinine (Component) 0.8 mg/dL (0.6-1.3); Estimated Creatinine Clearance 115.8 mL/min (>60); Globulin 3.3 gm/dL (2.3-3.5); Glucose 111 mg/dL (74-106); Lipase 22 U/L (12-53); Osmolality,Calculated 273 (275-295); Potassium 4.0 mMol/L (3.4-5.1); Sodium 137 mMol/L (136-145); Total Protein 7.4 gm/dL (5.7-8.2); eGFR > 60 See Note
[2024-11-05 17:08] LABS: Collection Type, Urine Clean Catch; WBC,Urine 0 /hpf (0-5)
[2024-11-05 17:26] LABS: Bilirubin,Urine Negative (Negative); Blood,Urine 3+ (Negative); Clarity,Urine Turbid (Clear/Hazy); Color,Urine Yellow (Lt Yel-Yel); Culture Indicated,Urine Not Indicated; Glucose, Urine Negative (Negative); Ketones,Urine Negative (Negative); Nitrite,Urine Negative (Negative); PH,Urine 6.5 (5.0-7.0); Protein,Urine Trace (Neg - Trace); RBC,Urine 8 /hpf (0-3); Specific Gravity,Urine 1.027 (1.001-1.035); Squamous Epithelial Cell,Urine 12 /hpf (0-5); Urobilinogen,Urine Negative mg/dL (0.0-1.0)
[2024-11-05 17:30] LABS: Leukocyte Esterase,Urine Negative (Negative)
[2024-11-05] MEDS: KETOROLAC INJ 30 MG/ML VIAL IVP (18:28)
[2024-11-05 18:32] VITALS: BP 142/98; PULSE 90; RESP 17; TEMP 38.6; O2SAT 100
[2024-11-05 18:48] VITALS: TEMP 38.6
[2024-11-05] MEDS: ACETAMINOPHEN 500 MG TABLET 1000 MG PO (18:48)
[2024-11-05] MEDS: SODIUM CHLORIDE 0.9% 1000 ML 1,000 ML 999 ML IV (18:49)
--- NOTE | 2024-11-05 18:55 | PC.NURSE ---
PT COMING FROM IN ED LOBBY WITH C/O RUQ ABD PAIN THAT RADIATES TO RLQ ABD. PT ALSO REPORTS BEING NAUSEOUS BUT DENIES VOMITING AT THIS TIME. PMH OF HIGH BP, TUBAL LIGATION, CHOLYCYSTECTOMY, AND X2. PT LYING IN BED AND CONNECTED TO MONITORS. NO ACUTE DISTRESS NOTED AT THIS TIME.
[2024-11-05 19:29] VITALS: BP 150/96; PULSE 83; RESP 17; TEMP 37.1; O2SAT 97
[2024-11-05 19:51] VITALS: TEMP 37.1
--- NOTE | 2024-11-05 19:57 | XR_ITS ---
Examination: Pelvic ultrasound, transabdominal, complete Technique: Transabdominal ultrasound of the pelvis performed using grayscale imaging Date and time of exam: November 05, 2024, 2058 hours INDICATIONS: Right lower abdominal pain and pelvic pain beginning 2 months ago INDICATIONS: Complex cystic mass above the uterus extending into the abdomen on CT study today FINDINGS: Uterus 7.7 cm endometrial stripe 0.8 cm Ovaries of by bowel gas Large complex vascular mass in the right adnexal region 16.1 x 13.9 x 16.8 cm IMPRESSION: Large complex right pelvic vascular mass 16.1 x 13.9 x 16.8 cm, most consistent with ovarian tumor Recommend MRI pelvis follow-up pre and postcontrast
--- NOTE | 2024-11-05 22:57 | PD.GYNCONS ---
REHABILITATION CONSULTANT HPI Data of Consult Patient: known to practice within the last 3 years Consult date: 11/05/24 Requesting Physician: Beto WALKER Primary Care Provider: Win Martínez MD Consult Narrative Reason for consult: pelvic mass History of present illness: The patient is a 44-year-old -0-0-2 history of x 2 in the past who presented to the ER around 5:00 PM today reporting vague right sided abdominal pain. She reported some nausea with that but no vomiting no diarrhea no fevers no abnormal uterine bleeding. She denies early satiety, increasing abdominal girth, weight loss or fatigue. She has had a history of a cholecystectomy. No other abdominal surgeries besides her 2 C-sections. Her children are 18 and 10. As part of her workup,a CT scan was ordered revealing a pelvic mass measuring 16 x 14 x 16.8 cm. I ordered a pelvic ultrasound and this was also performed revealing a complex pelvic mass arising from the right adnexa 16 x 13.9 x 16.8 cm. No free fluid was noted to suggest ascites. I was consulted to discuss the results with the patient and come up with plan for management. 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 Her is at bedside. Also of note she has a mother who of breast cancer. She stated that she was diagnosed at age 25 and at age 32. She has a sister who was diagnosed in her 40s who has had a mastectomy and lymph node dissection with chemo. The patient thinks her sister was checked for the BRCA1 BRCA2 gene but she does not know the results. The patient herself has not been checked for BRCA1 BRCA2. She has a total of 3 siblings. Her sister with breast cancer, and 2 brothers. There is no colon cancer in the family. The patient states she is also had a spinal fusion a year ago in [place]. cc:: cc: Review of Systems Review of Systems Narrative Review of Systems: No weight loss, no fatigue, no early satiety, no abnormal uterine bleeding, no fevers no chills no diarrhea. No dysuria . The patient reports right sided abdominal pain. She reports nausea but no vomiting. She states her last Pap was about a year ago and her last mammogram was about 2 years ago. Past Medical History Past Medical History REPRODUCTIVE: Positive Breast Cancer (Patient's mother of breast cancer, patient's sister has breast CA ) OTHER HISTORY: Positive Breast Cancer (Patient's mother of breast cancer, patient's sister has breast CA ) Past Medical History Comments PMH COMMENT: Patient has elevated blood pressure and is on lisinopril She has had a history of a cholecystectomy in 2021 She has a history of x 2 . One was 18 years ago and one was 10 years ago She has a history of a spinal fusion 1 year ago She has a history of a breast biopsy about 2 years ago Meds Home Medications and Allergies Home Medications ?Medication ?Instructions ?Recorded ?Confirmed ?Type lisinopril 10 mg tablet 10 mg PO HS 10/18/19 09/08/24 History Allergies Allergy/AdvReac Type Severity Reaction Status Date / Time No Known Allergies Allergy Verified 11/05/24 15:49 Exam - REHABILITATION CONSULTANT Vital Signs Temp Pulse Resp BP Pulse Ox O2 Del Method 98.7 F 83 17 150/96 H 97 Room Air 11/05/24 19:51 11/05/24 19:29 11/05/24 19:29 11/05/24 19:29 11/05/24 19:29 11/05/24 19:29 Narrative Exam The patient is a pleasant female resting comfortably in the bed appears her stated age. Her is at bedside. She is alert and oriented x 3. She asked questions appropriately. She is in no apparent distress. Routine Abdominal Exam Abdominal: Present soft Comments: Patient's abdomen is obese. It is soft. It is nontender. I cannot palpate a mass in her right adnexa. Her Pfannenstiel scar is well-healed. Pelvic exam deferred. REHABILITATION CONSULTANT - Results Labs 11/05/24 16:31 11/05/24 16:31 Labs: Short CBC 11/05/24 Range/Units 16:31 WBC 10.7 (3.6-11.0) Thou/mm3 Hgb 9.4 L (12.0-16.0) g/dL Hct 29.6 L (36.0-46.0) % Plt Count 417 (140-440) Thou/mm3 BMP 11/05/24 16:31 Sodium 137 Potassium 4.0 Chloride 103 Carbon Dioxide 25.9 BUN 8 L Creatinine 0.8 Glucose 111 H Calcium 8.8 Liver Function 11/05/24 Range/Units 16:31 Total Bilirubin 0.9 (0.3-1.2) mg/dL AST 59 H (0-34) U/L ALT 33 (10-49) U/L Alkaline Phosphatase 117 H (46-116) U/L Albumin 4.1 (3.5-5.0) gm/dL Urine 11/05/24 Range/Units 16:45 Urine Color Yellow (Lt Yel-Yel) Urine Clarity Turbid A (Clear/Hazy) Urine pH 6.5 (5.0-7.0) Ur Specific [place] 1.027 (1.001-1.035) Urine Protein Trace (Neg - Trace) Urine Glucose (UA) Negative (Negative) Imaging and Cardiology US - abdomen: Status: image reviewed by me Additional comments: The patient's images of her pelvic ultrasound were revealed by me was the report report from the radiologist also revealing a 16cm x 13.9cm x 16.8 cm complex mass from her right adnexa. Assessment and Plan Assessment and plan (1) Complex cyst of right ovary: Status: Acute Assessment and plan: I explained to the patient that since she is in no acute pain today, that this mass needs to be worked up as an outpatient. It is very large and complex appearing and is concerning for some type of neoplasm, possible ovarian cancer. The patient needs to follow-up at our clinic as an outpatient. She just saw Dr. De Guzman as a consult a month or 2 ago for vaginitis and urinary complaints. She will need to have ovarian tumor markers checked, some of which are send outs. She also needs to be tested for BRCA1 BRCA2 and we might need to authorize for this. I explained to the patient that she will likely need an exploratory laparotomy with removal of the pelvic mass. This likely will be done at a different institution by a gynecological oncologist. No surgery needs to be done today. The patient may need a total hysterectomy BSO if she is positive for BRCA1 BRCA2. Patient and her both had bella to ask questions. All questions were answered. Patient was told depending on her tumor markers that she actually might need a staging procedure done. She will follow-up as an outpatient. She will call the clinic Thursday to for follow-up. She will need tumor markers performed and then a referral to a specialist after that. The patient is stable to be discharged from a gynecological standpoint. The critical need for close follow-up was stressed to the patient and her .
[2024-11-05 23:38] VITALS: BP 138/78; PULSE 77; RESP 17; O2SAT 99
[2024-11-05] MEDS: AMOXICILLIN/POT CLAV 875 TABLET 1 TAB PO (23:38)
== END 2024-11-05 23:40 | disposition home or self-care (01) ==
PROVIDERS: Nurse Practitioner Family; Emergency Provider Emergency Medicine; PCP Family Medicine
DX: R19.03 Right lower quadrant abdominal swelling, mass and lump (principal); D36.7 Benign neoplasm of other specified sites; J18.9 Pneumonia, unspecified organism; J90 Pleural effusion, not elsewhere classified
CPT/HCPCS: 36415; 74177; 76705; 76856; 80053; 81001; 83690; 85025; 85610; 87400; 87811; 96361; 96374; 99283; A4649; J1885; J7030; Q9967; A9270

== ENCOUNTER → 2024-11-16 | Outpatient (CLI) | payer OTHER, SELFPAY ==
[2024-11-16 12:10] LABS: Beta HCG,Quantitative < 1 mIU/mL (<5.0)
[2024-11-16 12:25] LABS: CA 125 61.0 U/mL (<30.2)
[2024-12-01 06:46] LABS: Estradiol, Free 4.15 pg/mL; Estradiol, Total 172 pg/mL
== END | disposition home or self-care (01) ==
LOC: COPL 10:15
PROVIDERS: PCP Family Medicine; Referring Provider Obstetrics & Gynecology; Visit Provider Obstetrics & Gynecology
DX: N83.291 Other ovarian cyst, right side (principal)
CPT/HCPCS: 36415; 82670; 82681; 84702; 86304

== ENCOUNTER 2024-12-15 11:42 | Inpatient (IN) | payer OTHER, SELFPAY ==
--- NOTE | 2024-12-14 06:00 | EKG_ITS ---
[facility] Test Date: 2024-12-14 Pat Name: DILIP HOLMAN Department: Room: - Gender: Female Tripe Scraper: LM : 1980 Requested By: Sabino Herring Order Number: [id number] Reading MD: Sabino Herring Measurements Intervals [facility] Rate: 75 P: 32 OH: 152 QRS: 36 QRSD: 82 T: 56 QT: 369 QTc: 414 Interpretive Statements SINUS RHYTHM MODERATE ST DEPRESSION [0.05+ mV ST DEPRESSION] Compared to ECG 09/24/2023 11:46:25 ST (T wave) deviation now present /store/S0/[id number]/ecg/[id number].pdf
[2024-12-14 08:33] VITALS: BMI 37.4
[2024-12-14 10:19] LABS: Basophils # (Auto) 0.1 Thou/mm3 (0.0-0.2); Basophils % (Auto) 1 % (0-2.5); Eosinophils # (Auto) 0.3 Thou/mm3 (0.0-0.5); Eosinophils % (Auto) 4 % (0-10); Hematocrit 31.4 % (36.0-46.0); Hemoglobin 9.6 g/dL (12.0-16.0); Immature Granulocytes Auto 0.03 Thou/mm3 (0.00-0.00); Lymphocytes # (Auto) 1.5 Thou/mm3 (1.0-4.8); Lymphocytes % (Auto) 18 % (10-50); Mean Corpuscular HGB Conc 30.6 g/dl (31.0-37.0); Mean Corpuscular Hemoglobin 24.4 pg (25.0-35.0); Mean Corpuscular Volume 80 fL (80-100); Monocytes # (Auto) 0.5 Thou/mm3 (0.0-0.8); Monocytes % (Auto) 6 % (0-12); Neutrophils # (Auto) 6.2 Thou/mm3 (1.8-7.7); Neutrophils % (Auto) 71 % (37-80); Nucleated Red Blood Cell # 0.00 Thou/mm3 (0.00-0.00); Nucleated Red Blood Cell % 0 /100 WBC (0); Platelet Count 458 Thou/mm3 (140-440); RDW Standard Deviation 40.3 fL (36.4-46.3); Red Blood Count 3.94 Miln/mm3 (4.00-5.20); White Blood Count 8.6 Thou/mm3 (3.6-11.0)
[2024-12-14 10:30] LABS: Alanine Aminotransferase 21 U/L (10-49); Albumin, Serum 4.2 gm/dL (3.5-5.0); Albumin/Globulin Ratio 1.3 (1.2-2.2); Alkaline Phosphatase 105 U/L (46-116); Anion Gap 9 (7-16); Aspartate Amino Transferase 27 U/L (0-34); BUN/Creatinine Ratio 17 Ratio (12-20); Bilirubin,Total 0.5 mg/dL (0.3-1.2); Blood Urea Nitrogen 12 mg/dL (9-23); Calcium 9.6 mg/dL (8.3-10.6); Calcium (Corrected) 9.6 mg/dL (8.5-10.1); Carbon Dioxide 26.7 mMol/L (20.0-31.0); Chloride 103 mMol/L (98-107); Creatinine (Component) 0.7 mg/dL (0.6-1.3); Estimated Creatinine Clearance 130.0 mL/min (>60); Globulin 3.2 gm/dL (2.3-3.5); Glucose 98 mg/dL (74-106); Osmolality,Calculated 277 (275-295); Potassium 4.2 mMol/L (3.4-5.1); Sodium 139 mMol/L (136-145); Total Protein 7.4 gm/dL (5.7-8.2); eGFR > 60 See Note
[2024-12-14 10:49] LABS: HCG,Qualitative Serum Negative
[2024-12-15] VITALS (12 sets, daily range): BP systolic 114–137; BP diastolic 74–86; PULSE 86–104; RESP 13–21; TEMP 36.2–36.7; O2SAT 96–100; BMI 37.0; BMI 36.9
[2024-12-15] MEDS: RINGERS LACTATED 1000 ML 1,000 ML 20 ML IV (08:05)
--- NOTE | 2024-12-15 10:46 | PD.GYNPROC ---
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 and 11 x 7.5 centimeters Negative tumor markers Anesthesia type: General Procedure description: Informed consent was obtained and the patient was brought to the operating room. Identity was confirmed using two patient identifiers. General anesthesia was administered and the patient was positioned in the supine position. The abdomen and perineum were prepped and draped in the usual sterile fashion. A Fair catheter was inserted for continuous drainage. A surgical timeout was performed. A transverse incision was made around the patient?s old Pfannenstiel scar, and a 2-inch band of thick scar tissue was dissected off from the overlying skin. The incision was carried through the subcutaneous tissues down to the rectus fascia. The fascia was incised in the usual fashion and dissected off the underlying rectus muscles. The muscles were in the midline, and the peritoneum was entered bluntly. Upon entry into the abdominal cavity, a very large cystic mass was palpated in the upper abdomen, clearly originating from the right adnexa. The cyst was gently manipulated toward the incision, but due to its extremely large size, it could not be exteriorized intact. The cyst was noted to have the gross appearance of a dermoid. Multiple small controlled incisions were made in the cyst wall, and the cyst fluid was suctioned out while taking care to minimize intraperitoneal spillage. Once decompressed and sufficiently mobilized, the cyst was delivered mostly intact and handed off to pathology. Following cyst removal, visualization of the pelvis was significantly improved. A second cyst was noted in the right retroperitoneum, arising from the fimbriated end of the right fallopian tube and ovary. This cyst was slowly mobilized using careful blunt and sharp dissection. Once freed, it was delivered intact and also sent to pathology. All dissection sites were inspected. Mild bleeding was noted from the left round ligament, which was controlled with a [id number] stitch using 0-Vicryl to compress the bleeding point. Adhesions and residual scar tissue were taken down to mobilize the uterus and facilitate exposure. Once all procedures were completed, hemostasis was confirmed. The abdominal cavity was copiously irrigated, and all fluid was suctioned out. Surgicel powder was applied over all dissection sites. The rectus muscles were reapproximated. The fascia was closed using 0-Vicryl in a running fashion. The subcutaneous fat and Carolyn?s fascia were reapproximated in two layers using 0-Vicryl and 0-Plain. The skin was closed using INSORB absorbable gaston. A sterile dressing was applied. The patient was undraped, extubated, and transferred to recovery in stable condition. She tolerated the procedure well. All instrument, sponge, and lap counts were correct ?2. Estimated blood loss (ml): 100 Complications: none Surgical staff Operation Date: 12/15/24 09:45 Case Staff MUSIC DIRECTOR: Alex Fontaine RNsoftware maintenance engineer: Carmella Vásquez Diagnosis Discharge Diagnosis (1) Bilateral dermoid cysts of ovaries: Status: Acute Problem List Completed Was Problem List Reviewed/Reconciled?: Yes
--- NOTE | 2024-12-15 10:48 | SUR.PHASEI ---
pt receives to [facility]. vss. breathing even and unlabored. dressing cdi to abdomen with abdominal binder in place. fc draining to gravity. denies pain and nausea. report from nurse denisse toolroom clerk student and antonio farfan.
[2024-12-15] MEDS: HYDROmorphone 1 MG/ML PCA SYRINGE 30ML PCA (11:25)
[2024-12-15] MEDS: SODIUM CHLORIDE 0.9% 1000 ML 1,000 ML 200 ML IV ×2 (11:29→16:34)
--- NOTE | 2024-12-15 11:38 | SUR.PHASEI ---
report called zhane on ms. vss. breathing even and unlabored. dressing remains cdi. pt stated relief after stunner animal loading dose. fc draining to gravity. transported to room via bed.
[2024-12-15] MEDS: ACETAMINOPHEN IVPB 1,000 MG/100 ML VIAL 250 MG IV ×2 (12:28→19:55)
[2024-12-15] MEDS: PIPER/TAZO 3.375 GM PREMIX 3.375 GM/50 ML BAG IV (20:20)
--- NOTE | 2024-12-15 20:56 | PC.NURSE ---
called Dr. De Guzman to ask if he could put the code status for pt, Dr. De Guzman stated that pt is full code, Order placed for pt as full code per Dr. De Guzman telephone order-read back.
[2024-12-16] VITALS (8 sets, daily range): BP systolic 113–133; BP diastolic 73–89; PULSE 62–90; RESP 16–20; TEMP 36.1–36.8; O2SAT 97–100
[2024-12-16] MEDS: ACETAMINOPHEN IVPB 1,000 MG/100 ML VIAL 250 MG IV ×2 (00:53→06:07)
[2024-12-16] MEDS: SODIUM CHLORIDE 0.9% 1000 ML 1,000 ML 200 ML IV ×2 (00:54→06:14)
[2024-12-16] MEDS: PIPER/TAZO 3.375 GM PREMIX 3.375 GM/50 ML BAG IV ×3 (06:10→21:49)
[2024-12-16 06:17] LABS: Basophils # (Auto) 0.0 Thou/mm3 (0.0-0.2); Basophils % (Auto) 0 % (0-2.5); Eosinophils # (Auto) 0.1 Thou/mm3 (0.0-0.5); Eosinophils % (Auto) 1 % (0-10); Hematocrit 26.8 % (36.0-46.0); Immature Granulocytes Auto 0.05 Thou/mm3 (0.00-0.00); Lymphocytes # (Auto) 0.9 Thou/mm3 (1.0-4.8); Lymphocytes % (Auto) 7 % (10-50); Mean Corpuscular HGB Conc 30.6 g/dl (31.0-37.0); Mean Corpuscular Hemoglobin 24.4 pg (25.0-35.0); Mean Corpuscular Volume 80 fL (80-100); Monocytes # (Auto) 0.9 Thou/mm3 (0.0-0.8); Monocytes % (Auto) 7 % (0-12); Neutrophils # (Auto) 10.8 Thou/mm3 (1.8-7.7); Neutrophils % (Auto) 85 % (37-80); Nucleated Red Blood Cell # 0.00 Thou/mm3 (0.00-0.00); Nucleated Red Blood Cell % 0 /100 WBC (0); Platelet Count 393 Thou/mm3 (140-440); RDW Standard Deviation 40.9 fL (36.4-46.3); Red Blood Count 3.36 Miln/mm3 (4.00-5.20); White Blood Count 12.7 Thou/mm3 (3.6-11.0)
[2024-12-16 06:24] LABS: Hemoglobin 8.2 g/dL (12.0-16.0)
[2024-12-16 06:49] LABS: Anion Gap 11 (7-16); BUN/Creatinine Ratio 7 Ratio (12-20); Blood Urea Nitrogen < 5 mg/dL (9-23); Calcium 9.1 mg/dL (8.3-10.6); Carbon Dioxide 23.1 mMol/L (20.0-31.0); Chloride 108 mMol/L (98-107); Creatinine (Component) 0.7 mg/dL (0.6-1.3); Estimated Creatinine Clearance 129.1 mL/min (>60); Glucose 123 mg/dL (74-106); Osmolality,Calculated 281 (275-295); Potassium 4.5 mMol/L (3.4-5.1); Sodium 142 mMol/L (136-145); eGFR > 60 See Note
--- NOTE | 2024-12-16 08:37 | PD.GYNPROG ---
Documentation for date of: 12/16/24 REAL ESTATE INSTRUCTOR Subjective Subjective Interval history: Patient doing well this morning. No acute complaints. Pain is appropriate for postoperative status. Minimal nausea and vomiting which is to be expected. No chest pain or shortness of breath hemoglobin drop is appropriate. Exam Vital Signs Temp Pulse Resp BP Pulse Ox O2 Del Method O2 Flow Rate 97.4 F 67 18 127/81 97 Room Air 1 12/16/24 08:00 12/16/24 08:00 12/16/24 08:00 12/16/24 08:00 12/16/24 08:00 12/16/24 08:00 12/16/24 06:58 Constitutional Constitutional: no acute distress Routine HEENT Exam Head: Present normocephalic and atraumatic Eye: Present EOMI and PERRL ENT: Present mucous membranes moist Routine Neck Exam Neck: Present supple and trachea midline Routine Respiratory Exam Respiratory: Present chest non-tender, lungs clear, normal breath sounds and no resp distress Routine Cardiovascular Exam Cardiovascular: Present RRR Routine Abdominal Exam Abdominal: Present soft and normoactive bowel sounds Routine Extremities Exam Extremities: Present full ROM Routine Skin Exam Skin: Present intact and dry Routine Neurological Exam Neurological: Present alert, oriented X3 and CN II-XII intact Routine Psychiatric Exam Psychiatric: Present normal affect and normal thought process Urinary Catheter Management Cath placed during this visit: no REAL ESTATE INSTRUCTOR - PN: Obj Data Labs 12/16/24 04:03 12/16/24 04:03 Labs: Laboratory Results - last 24 hr 12/16/24 04:03 WBC 12.7 H D RBC 3.36 L Hgb 8.2 L Hct 26.8 L MCV 80 MCH 24.4 L MCHC 30.6 L RDW Std Deviation 40.9 Plt Count 393 D Neut % (Auto) 85 H Lymph % (Auto) 7 L [place] % (Auto) 7 Eos % (Auto) 1 Baso % (Auto) 0 Neut # (Auto) 10.8 H Lymph # (Auto) 0.9 L [place] # (Auto) 0.9 H Eos # (Auto) 0.1 Baso # (Auto) 0.0 Immature Gran # (Auto) 0.05 H Absolute Nucleated RBC 0.00 Immature Gran % 0 Nucleated RBC % 0 Sodium 142 Potassium 4.5 Chloride 108 H Carbon Dioxide 23.1 Anion Gap 11 BUN < 5 L Creatinine 0.7 Estim Creat Clear Calc 129.1 eGFR > 60 BUN/Creatinine Ratio 7 L Glucose 123 H Calculated Osmolality 281 Calcium 9.1 REAL ESTATE INSTRUCTOR - A/P Assessment and plan (1) Bilateral dermoid cysts of ovaries: Status: Acute Assessment and plan: Patient is postoperative day #1 status post laparotomy and bilateral ovarian cystectomy Continue routine postoperative care. Remove Fair catheter. Will DC IV fluids and transition to oral medications. Discharge planning based on postoperative course Postoperative Procedures: Procedures Operation Date: 12/15/24 09:45 Actual Procedure Side Surgeon p Laparotomy and Bilateral Ovarian Cystectomy Bilateral Irineo De Guzman MD Time Spent With Patient Time: Total time spent is greater than 50% in coordination of care (as documented) at patient's floor/unit and/or counseling patient: Time with patient: less than 15 minutes
[2024-12-16] MEDS: LACTULOSE SYRUP 20 GM/30 ML UDC 10 GM PO ×2 (09:42→14:49)
[2024-12-16] MEDS: DOCUSATE SOD 100 MG CAPSULE PO (09:42)
[2024-12-16] MEDS: KETOROLAC INJ 30 MG/ML VIAL IVP ×2 (09:43→17:28)
--- NOTE | 2024-12-16 11:43 | PC.SS ---
Patient is alert/oriented. Patient was admitted for right ovarian cysts. Patient being seen by Dr. De Guzman. Patient had surgery yesterday for a laparotomy and ovarian cystectomy. Today is post op day 1. Discharge plan is to return home. Patient has family support. Patient is independent with ADL'. She is currently employed. Discharge pending home.
[2024-12-16 12:35] LABS: AFP Non-Pregnant 1.60 ng/mL (<8.10)
--- NOTE | 2024-12-16 13:00 | PC.NURSE ---
@1300 Dr. De Guzman here at bedside and removed dressing to lower abd.
--- NOTE | 2024-12-16 15:53 | PC.NURSE ---
Patient pain 6/10 refuse to take [place] would prefer tylenol.
[2024-12-16] MEDS: ACETAMINOPHEN 325 MG TABLET 650 MG PO (15:55)
--- NOTE | 2024-12-16 16:48 | PC.NURSE ---
Patient continues to c/o gas pain in abdomen. Patient ambulating in room. Encouraged patient to ambulate in hallway. 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
--- NOTE | 2024-12-16 20:51 | PC.NURSE ---
Verified with kassi Franklin, the flow rate of Zosyn of 100 ml/hr. Pharmacist said to continue running med at that rate.
[2024-12-17] VITALS: BP 122/74; PULSE 72; RESP 16; TEMP 36.3; O2SAT 100
[2024-12-17] MEDS: KETOROLAC INJ 30 MG/ML VIAL IVP ×2 (00:37→09:01)
[2024-12-17 04:00] VITALS: BP 119/81; PULSE 79; RESP 15; TEMP 36.2; O2SAT 98
[2024-12-17 05:36] LABS: Basophils # (Auto) 0.1 Thou/mm3 (0.0-0.2); Basophils % (Auto) 1 % (0-2.5); Eosinophils # (Auto) 0.1 Thou/mm3 (0.0-0.5); Eosinophils % (Auto) 1 % (0-10); Hematocrit 28.6 % (36.0-46.0); Immature Granulocytes Auto 0.03 Thou/mm3 (0.00-0.00); Lymphocytes # (Auto) 2.2 Thou/mm3 (1.0-4.8); Lymphocytes % (Auto) 22 % (10-50); Mean Corpuscular HGB Conc 29.7 g/dl (31.0-37.0); Mean Corpuscular Hemoglobin 24.0 pg (25.0-35.0); Mean Corpuscular Volume 81 fL (80-100); Monocytes # (Auto) 0.7 Thou/mm3 (0.0-0.8); Monocytes % (Auto) 6 % (0-12); Neutrophils # (Auto) 7.2 Thou/mm3 (1.8-7.7); Neutrophils % (Auto) 70 % (37-80); Nucleated Red Blood Cell # 0.00 Thou/mm3 (0.00-0.00); Nucleated Red Blood Cell % 0 /100 WBC (0); Platelet Count 390 Thou/mm3 (140-440); RDW Standard Deviation 42.5 fL (36.4-46.3); Red Blood Count 3.54 Miln/mm3 (4.00-5.20); White Blood Count 10.4 Thou/mm3 (3.6-11.0)
[2024-12-17 05:47] LABS: Hemoglobin 8.5 g/dL (12.0-16.0)
[2024-12-17 05:55] LABS: Alanine Aminotransferase 63 U/L (10-49); Albumin, Serum 3.5 gm/dL (3.5-5.0); Albumin/Globulin Ratio 1.3 (1.2-2.2); Alkaline Phosphatase 99 U/L (46-116); Anion Gap 10 (7-16); Aspartate Amino Transferase 50 U/L (0-34); BUN/Creatinine Ratio 11 Ratio (12-20); Bilirubin,Total 0.3 mg/dL (0.3-1.2); Blood Urea Nitrogen 9 mg/dL (9-23); Calcium 8.9 mg/dL (8.3-10.6); Calcium (Corrected) 9.3 mg/dL (8.5-10.1); Carbon Dioxide 26.1 mMol/L (20.0-31.0); Chloride 107 mMol/L (98-107); Creatinine (Component) 0.8 mg/dL (0.6-1.3); Estimated Creatinine Clearance 113.0 mL/min (>60); Globulin 2.8 gm/dL (2.3-3.5); Glucose 102 mg/dL (74-106); Osmolality,Calculated 283 (275-295); Potassium 4.3 mMol/L (3.4-5.1); Sodium 143 mMol/L (136-145); Total Protein 6.3 gm/dL (5.7-8.2); eGFR > 60 See Note
[2024-12-17] MEDS: PIPER/TAZO 3.375 GM PREMIX 3.375 GM/50 ML BAG IV (06:12)
[2024-12-17 07:00] VITALS: PULSE 98; RESP 18; RESP 96
[2024-12-17 08:00] VITALS: BP 129/87; PULSE 72; RESP 12; TEMP 36.3; O2SAT 99
--- NOTE | 2024-12-17 08:19 | ESPR_ITS ---
Documentation for date of: 12/17/24 CORPORATE DIRECTOR Subjective Subjective Interval history: Patient doing well this morning. No acute complaints. Pain is appropriate for postoperative status. Minimal nausea and vomiting which is to be expected. No chest pain or shortness of breath hemoglobin drop is appropriate. Has been ambulating, tolerating p.o. diet. Exam Vital Signs Temp Pulse Resp BP Pulse Ox O2 Del Method O2 Flow Rate 97.2 F 98 18 119/81 98 Room Air 1 12/17/24 04:00 12/17/24 07:00 12/17/24 07:00 12/17/24 04:00 12/17/24 04:00 12/17/24 04:00 12/16/24 06:58 Constitutional Constitutional: no acute distress Routine HEENT Exam Head: Present normocephalic and atraumatic Eye: Present EOMI and PERRL ENT: Present mucous membranes moist Routine Neck Exam Neck: Present supple and trachea midline Routine Respiratory Exam Respiratory: Present chest non-tender, lungs clear, normal breath sounds and no resp distress Routine Cardiovascular Exam Cardiovascular: Present RRR Routine Abdominal Exam Abdominal: Present soft and normoactive bowel sounds Routine Extremities Exam Extremities: Present full ROM Routine Skin Exam Skin: Present intact and dry Routine Neurological Exam Neurological: Present alert, oriented X3 and CN II-XII intact Routine Psychiatric Exam Psychiatric: Present normal affect and normal thought process Urinary Catheter Management Cath placed during this visit: yes, but has since been removed by the nurse Removal date: 12/16/24 Removal time: 09:50 CORPORATE DIRECTOR - PN: Obj Data Labs 12/17/24 05:19 12/17/24 05:19 Labs: Laboratory Results - last 24 hr 12/16/24 12/17/24 05:03 05:19 WBC 10.4 RBC 3.54 L Hgb 8.5 L Hct 28.6 L MCV 81 MCH 24.0 L MCHC 29.7 L RDW Std Deviation 42.5 Plt Count 390 Neut % (Auto) 70 Lymph % (Auto) 22 [place] % (Auto) 6 Eos % (Auto) 1 Baso % (Auto) 1 Neut # (Auto) 7.2 Lymph # (Auto) 2.2 [place] # (Auto) 0.7 Eos # (Auto) 0.1 Baso # (Auto) 0.1 Immature Gran # (Auto) 0.03 H Absolute Nucleated RBC 0.00 Immature Gran % 0 Nucleated RBC % 0 Sodium 143 Potassium 4.3 Chloride 107 Carbon Dioxide 26.1 Anion Gap 10 BUN 9 Creatinine 0.8 Estim Creat Clear Calc 113.0 eGFR > 60 BUN/Creatinine Ratio 11 L Glucose 102 Calculated Osmolality 283 Calcium 8.9 Corrected Calcium 9.3 Total Bilirubin 0.3 AST 50 H ALT 63 H Alkaline Phosphatase 99 Total Protein 6.3 Albumin 3.5 D Globulin 2.8 Albumin/Globulin Ratio 1.3 Tumor Marker AFP 1.60 CORPORATE DIRECTOR - A/P Assessment and plan (1) Bilateral dermoid cysts of ovaries: Status: Acute Assessment and plan: Patient meeting postoperative milestones ready for discharge Home care instructions reviewed Follow-up in office in 1 Postoperative Procedures: Procedures Operation Date: 12/15/24 09:45 Actual Procedure Side Surgeon p Laparotomy and Bilateral Ovarian Cystectomy Bilateral Irineo De Guzman MD Time Spent With Patient Time: Total time spent is greater than 50% in coordination of care (as documented) at patient's floor/unit and/or counseling patient: Time with patient: less than 15 minutes
== END 2024-12-17 11:00 | disposition home or self-care (01) | DRG 743 ==
LOC: S3NX 11:46
PROVIDERS: Admitting Provider Obstetrics & Gynecology; PCP Family Medicine; Referring Provider Obstetrics & Gynecology; Visit Provider Obstetrics & Gynecology
PROC: 0UB20ZZ Excision of Bilateral Ovaries, Open Approach (ICD-10-PCS; CPT 49000; principal; 2024-12-15 09:30)
DX: D27.1 Benign neoplasm of left ovary (principal); D27.0 Benign neoplasm of right ovary
CPT/HCPCS: 36415; 80048; 80053; 82105; 84703; 85025; 86850; 86900; 86901; 93005; A4217; A4649; J0131; J1100; J1885; J2250; J2371; J2405; J2543; J2704; J2765; J3010; J3490; J7030; J7120; A9270; J1596; J1805

== ENCOUNTER 2025-01-13 09:16 | Outpatient (AMB) | payer OTHER, SELFPAY ==
[2025-01-13 09:25] VITALS: BP 127/82; PULSE 65; RESP 16; TEMP 36.8; O2SAT 99
--- NOTE | 2025-01-13 09:25 | AMB.GYNCLNOT ---
Vital Signs 01/13/25 09:25 Weight 107.501 kg Weight Measurement Method Standing Scale BP 127/82 Blood Pressure Source Automatic Cuff Blood Pressure Location Left Upper Arm Position Sitting Respiration 16 Pulse 65 Pulse Source Monitor Temp 98.2 F Temp Source Oral Pulse Oximetry (%) 99 Allergies/Home Meds Allergies & Medications Allergies No Known Allergies Allergy (Verified 01/13/25 09:26) Medication Reconciliation lisinopril 10 mg tablet 10 mg PO HS 10/18/19 [History Confirmed 01/13/25] Intake Visit Data Collection New Patient or Established: Established Patient (seen at [facility] within 3 years) Reason for Visit:: Seen by Clinical Staff ONLY (RN/MA): No Kiss Mixer Required: No Do You Feel Safe at Home: Yes Authorities Contacted: N/A PCP or OBGYN visit in last 3 months: Yes Date of Last PCP or OBGYN visit: 12/17/24 Hx Now: No Are you currently on any form of Control: No Last menstrual period: 12/10/24 Pain Present Currently: No Pain Scale Used: Perez-Moralez/Numerical Pain scale:: 0 Smoking Status Smoking Status: Never smoker 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 Automotive Service Professional History Menstrual regularity: regular Flow: normal Monthly: Yes Age at menarche: 11 Menopausal: No Currently sexually active: Yes 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 1. Little interest or pleasure in doing things: not at all 2. Feeling down, depressed, or hopeless: not at all Total score: 0 PHQ-9 3. Trouble falling or staying asleep, or sleeping too much: Not at all 4. Feeling tired or having little energy: Not at all 5. Poor appetite or overeating: Not at all 6. Feeling bad about yourself - or that you are a failure or have let yourself or your family down: Not at all 7. Trouble concentrating on things, such as reading the newspaper or watching television: Not at all 8. Moving or speaking so slowly that other people could have noticed? - Or the opposite - being so fidgety or restless that you have been moving around a lot more than usual: not at all 9. Thoughts that you would be better off or of hurting yourself in some way: Not at all Total score: 0 If you checked off any problems, how difficult have these problems made it for you to do your work, take care of things at home, or get along with other people?: not difficult at all Source: Developed by Drs. Francisco Thurman, Mayra Avendano, Raman Terrazas and colleagues, with an educational heriberto from [employer]. Depression screen completed yes Social History Living Situation History Lives With: Family Housing: House Tobacco History Smoking Status: Never smoker Second Hand Smoke Exposure: No Alcohol History Alcohol Intake: Never Domestic Abuse History Do You Feel Safe at Home: Yes History of Present Illness HPI Narrative Meliza Zuluaga presents for follow-up after recent surgery for bilateral ovarian tumors, reporting feeling all right overall since her procedure. She underwent surgery in early December for bilateral ovarian tumors. The left ovarian tumor was described as a very rare type, comprising only 0.1% of all ovarian tumors. It had grown to a significant size and was producing sex hormones, including estrogen, progesterone, and testosterone. 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 The combined weight of the tumors was approximately 5 pounds, not including additional fluid that was drained during the procedure. She notes that she had been experiencing hair loss prior to the surgery, which she compares to hair loss. She reports that the hair loss seems to have decreased since the procedure, though it is still ongoing. The patient's surgical incision has healed well, and she reports no complications from the surgery. The patient is seeking an extension for her return to work, requesting to extend her leave until January 30. She expresses that it takes her a little time to get moving, suggesting some residual fatigue or reduced mobility following the surgery. She has an obstetric history of G1 T1 L1. The patient is employed and discussing return to work. ROS: Positive for hair loss and hormone imbalance.. 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), sex hormone-producing tumor - Tumor weights: - Left ovary: 1138 grams - Right ovary: 315 grams - Total combined weight: 1453 grams Exam General General Appearance: alert, in no apparent distress and healthy appearing Head Head exam: atraumatic Neck Neck exam: Present normal inspection and trachea midline Chest Chest inspection: Present normal inspection and symmetric chest wall rise External exam: Present normal external exam; Absent tenderness Neuro Neurological exam: Present oriented X3 Psych Psychiatric exam: Present normal affect and normal mood Office Procedures [facility] LOC & Office Proc's Nursing/Assessment Patient Status: Established Patient OB Clinic Nursing Assessment: Medication Reconciliation, Update PMH in EMR and Vital Signs OB Clinic Coordination of Care: Education Complex Pt/Fam, Consent,records obtained, informed consent, Lab and Imaging orders, Results/Orders obtained and Staff clarify orders Established Patient Charge Established Patient Point Assignment: 85 Established Patient Point Charge: EP Level 3 (80-115) Assessment & Plan Diagnosis / Problem List (1) Bilateral dermoid cysts of ovaries: Status: Acute (2) Complex cyst of right ovary: Status: Acute Plan Bilateral Ovarian Tumors, Postoperative: - Patient underwent bilateral ovarian tumor resection in early December 2024. 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 - Right-sided tumor is an extremely rare sex hormone-producing tumor representing 0.1% of all ovarian tumors weighing 1138 grams. - Total tumor weight approximately 5 pounds. - Hormone-producing tumor is benign and surgery is curative with no expected recurrence. - Patient reports improvement in hair loss symptoms since surgery consistent with removal of hormone-producing tumor causing hormonal imbalances by producing estrogen, progesterone, and testosterone. - Surgical sites appear well-healed on examination. Plan: - Second opinion consultation at [facility] for hormone-producing tumor pathology arranged by Dr. Naik. - Hormone panel in early March 2025 (3 months post-surgery) to confirm normalization. - Work release extension until January 30, 2025. - Clear for full duty return to work after January 30, 2025. - Provide work release documentation.
== END 2025-01-13 09:35 | disposition home or self-care (01) ==
LOC: HODSOBC 09:16
PROVIDERS: Supervising Provider Obstetrics & Gynecology; Visit Provider Obstetrics & Gynecology
DX: Z48.816 Encounter for surgical aftercare following surgery on the genitourinary system (principal); D27.1 Benign neoplasm of left ovary; N83.291 Other ovarian cyst, right side
CPT/HCPCS: 99213; G0463